=== PATIENT | female | born 1935 | race Caucasian/White ===

== ENCOUNTER 2019-09-07 13:25 | Observation (INO) | payer MEDICARE, SELFPAY ==
[2019-09-07] VITALS (21 sets, daily range): BP systolic 122–181; BP diastolic 56–108; PULSE 63–98; RESP 3–20; TEMP 35.9–36.9; O2SAT 96–100
--- NOTE | ~2019-09-07 | XR_ITS ---
EXAMINATION: XR chest 1V portable EXAM DATE: 09/07/2019 14:38 INDICATION: Headache. TECHNIQUE: Portable AP frontal chest x-ray was obtained. Comparison is made to prior examination from 03/09/2009. FINDINGS: The lungs are clear. There are no pleural effusions. Cardiac silhouette is prominent but magnified on this AP technique. There is no pneumothorax suspected. There are bony degenerative ch anges. IMPRESSION: No acute cardiopulmonary findings. Reviewed, dictated and finalized at location A.
--- NOTE | ~2019-09-07 | US_ITS ---
EXAMINATION: US carotid duplex BI DATE: 09/08/2019 13:36 INDICATION: Transient ischemic attack. TECHNIQUE: Grayscale, color Doppler, and pulsed Doppler images of the cervical carotid arteries were obtained. The degree of vessel stenosis is placed in one of the following categories: normal, <50%, 5 0-69%, >=70% but less than near-occlusion, near-occlusion, or total occlusion. Note that percent sten osis relative to normal distal artery lumen diameter is indirectly measured from velocity measurement s as described by Frederick, et al. Radiology 2003; 229:340-346. COMPARISON: None. FINDINGS: RIGHT: The right common carotid artery (CCA) peak systolic velocity (PSV) is 140 cm/s. The right internal ca rotid artery (ICA) PSV is 113 cm/s. The right ICA end-diastolic velocity (EDV) is 24 cm/s. The right ICA/CCA PSV ratio is 0.8. Grayscale and color Doppler images yield an estimate of <50% diameter reduc tion from plaque in the ICA. There is antegrade flow in the right vertebral artery. LEFT: The left CCA PSV is 151 cm/s. The left ICA PSV is 162 cm/s. The left ICA EDV is 35 cm/s. The left ICA /CCA PSV ratio is 1.1. Grayscale and color Doppler images yield an estimate of <50% diameter reductio n from plaque in the ICA. There is antegrade flow in the left vertebral artery. IMPRESSION: 1. <50% stenosis in the right internal carotid artery. 2. <50% stenosis in the left internal carotid artery. Reviewed, dictated and finalized at location A.
--- NOTE | ~2019-09-07 | CT_ITS ---
EXAMINATION: CT brain wo con EXAM DATE: 09/07/2019 14:36 INDICATION: Posterior headache, tingling and scalp. TECHNIQUE: Spiral CT of the head was performed without contrast. Axial, coronal and sagittal images were reviewed. The dose-length product (DLP) for this examination was 605.33 mGy-cm. The exposure w as tailored according to patient size, and iterative reconstruction (ASIR) was used as additional dos e reduction technique. There is no prior study for comparison. FINDINGS: There is no acute intraparenchymal hemorrhage. No evidence of intraparenchymal brain mass lesion. No evidence of acute infarction. Please note that initial head CT has limited sensitivity f or small or acute infarctions. There is mild periventricular and subcortical hypodensity, nonspecific but probably related to small vessel ischemic disease. There is mild prominence of the sulci and v entricles related to cerebral atrophy. There is intracranial carotid arteriosclerosis. There are n o extra-axial collections. There is no mass effect or midline shift. Patient has had bilateral ocul ar lens surgery. Soft tissue is unremarkable. The visualized sinuses and mastoid air cells are well aerated. IMPRESSION: 1. No acute intracranial findings. 2. Chronic age related findings. Reviewed, dictated and finalized at location A.
--- NOTE | 2019-09-07 13:43 | PC.NURSE ---
Pt states she was watching family drive by for Mother's Day and went inside. Pt states a couple time today she had episodes of tingling in her head. Pt states after the parade when she got inside she had some memory loss. Pt states she now has no symptoms. Pt is A&Ox4. Pt states she has no balance or gait issues. Pt family at bedside.
--- NOTE | 2019-09-07 14:22 | ECG_ITS ---
Measurements Intervals [place] Rate: 66 P: 52 AK: 169 QRS: -1 QRSD: 90 T: 43 QT: 399 QTc: 421 Interpretive Statements SINUS RHYTHM NORMAL ECG Electronically Signed On 09-07-2019 17:47:57 CDT by Noel Davidson D.O.
[2019-09-07 14:48] LABS: Glucose Point of Care 89 (65-105)
[2019-09-07 15:09] LABS: Basophils Absolute Auto 0.1 K/mm3 (0.0-0.1); Basophils Percent Auto 0.5 % (0.2-1.2); Eosinophils Absolute Auto 0.3 K/mm3 (0-0.3); Eosinophils Percent Auto 2.5 % (0-4.4); Hematocrit 39.4 % (37.0-47.0); Hemoglobin 13.2 g/dL (12.0-15.0); Immature Granulocyte Absolute 0.02 K/mm3 (0.00-0.031); Immature Granulocyte Percent A 0.2 % (0-0.5); Lymphocytes Percent Auto 17.9 % (18.3-44.2); Mean Corpuscular HGB Conc 33.5 g/dl (32-36); Mean Corpuscular Hemoglobin 30.6 pg (26-34); Mean Corpuscular Volume 91.2 fl (80-100); Mean Platelet Volume 9.8 fl (7.4-10.4); Monocytes Absolute Auto 0.7 K/mm3 (0.1-0.6); Monocytes Percent Auto 7.1 % (2.6-8.5); Neutrophils Absolute Auto 7.2 K/mm3 (1.3-6.7); Neutrophils Percent Auto 71.8 % (45.5-73.1); Platelet Count Result 251 k/mm3 (150-375); Red Blood Count 4.32 M/mm3 (4.2-5.4); Red Cell Distribution Width 12.1 % (11.5-14.5); White Blood Count 10.1 K/mm3 (4.5-10.0)
[2019-09-07 15:21] LABS: Blood Urea Nitrogen 16 mg/dL (7-17); Calcium 9.4 mg/dL (8.4-10.2); Carbon Dioxide 27 mmol/L (22-30); Chloride 100 mmol/L (98-107); Estimated CRCL calculation 48 ml/min; Estimated Glomerular Filt Rate > 60; Glucose 92 mg/dL (65-105); Sodium 134 mmol/L (137-145)
[2019-09-07 15:23] LABS: Prothrombin Time 12.8 Seconds (11.1-14.7)
--- NOTE | 2019-09-07 15:24 | ED.GENADULT ---
HPI - General Adult General Chief complaint: Unspecified Stated complaint: MILLIGAN Time Seen by Provider: 09/07/19 13:32 History of Present Illness HPI narrative: Patient is an 83-year-old female who presents the ER with strokelike symptoms. Patient was at her home and her family was performing a drive-by parade for Mother's Day. She then began to fill tingling in her head and went inside. She reports that when she got inside she had briefly forgotten about the parade and that it was Mother's Day. Patient reports she has been under a lot of stress as she has 2 sisters who are in their 90s who are currently hospitalized for pneumonia. She reports it is been an emotional morning and that she had not eaten today. No focal weakness in arm or leg. No dysarthria. I asked her symptoms lasted 1 to 2 minutes. Mild basilar MILLIGAN near the neck. Related Data Allergies Allergy/AdvReac Type Severity Reaction Status Date / Time Penicillins Allergy Severe RASH Verified 09/07/19 13:28 Review of Systems Review of Systems: All systems reviewed & are unremarkable except as noted in HPI and below Constitutional: Constitutional: Denies fatigue, Denies fever(s) and Denies weakness Eyes: Eyes: Denies change in vision and Denies photophobia Cardiovascular: Cardiovascular: Denies chest pain and Denies radiating jaw, neck or arm pain Respiratory: Respiratory: Denies cough and Denies dyspnea Gastrointestinal: Gastrointestinal: Denies abdominal pain, Denies nausea and Denies vomiting Neurologic: Reports confusion, Reports dizziness, Reports headache(s), Denies focal weakness, Reports numbness and Denies weakness PMFSH Past Medical History Medical History (Updated 09/07/19 @ 17:19 by Bennie Varghese MD) Essential (primary) hypertension Hypothyroidism (acquired) Mixed hyperlipidemia Surgical History Surgical History (Updated 09/07/19 @ 15:38 by Bennie Varghese MD) No pertinent past surgical history Social History Social History Smoking status: Current every day smoker Alcohol intake: current Gender identity (if verbalized by the patient): Female Exam Narrative: Exam Narrative: GENERAL: Well-appearing, well-nourished, and in no acute distress. HEAD: Normocephalic, atraumatic. EYES: PERRL and EOMI. ENT: Mucous membranes moist. CHEST: Clear to auscultation. No respiratory distress. HEART: Regular rate and rhythm. Normal peripheral pulses. ABDOMEN: Soft, nontender, nondistended. EXTREMITIES: Normal range of motion. No edema. SKIN: Warm, dry, no rash. NEURO: Alert and oriented x3. Course Vital Signs Vital signs: Vital Signs Temperature 98.4 F 09/07/19 13:29 Pulse Rate 69 09/07/19 13:29 Respiratory Rate 18 09/07/19 13:29 Blood Pressure 181/72 H 09/07/19 13:29 Pulse Oximetry 100 09/07/19 13:29 Temperature 98.4 F 09/07/19 13:29 Pulse Rate 71 09/07/19 17:02 Respiratory Rate 10 L 09/07/19 17:02 Blood Pressure 158/63 H 09/07/19 17:01 Pulse Oximetry 98 09/07/19 17:02 Medical Decision Making Vital Signs Vital Signs: Vital Signs Temperature 98.4 F 09/07/19 13:29 Pulse Rate 69 09/07/19 13:29 Respiratory Rate 18 09/07/19 13:29 Blood Pressure 181/72 H 09/07/19 13:29 Pulse Oximetry 100 09/07/19 13:29 Temperature 98.4 F 09/07/19 13:29 Pulse Rate 71 09/07/19 17:02 Respiratory Rate 10 L 09/07/19 17:02 Blood Pressure 158/63 H 09/07/19 17:01 Pulse Oximetry 98 09/07/19 17:02 Lab Data Result diagrams: 09/07/19 15:03 09/07/19 15:03 Labs: Lab Results 09/07/19 09/07/19 09/07/19 Range/Units 14:46 15:03 15:03 WBC 10.1 H (4.5-10.0) K/mm3 RBC 4.32 (4.2-5.4) M/mm3 Hgb 13.2 (12.0-15.0) g/dL Hct 39.4 (37.0-47.0) % MCV 91.2 (80-100) fl MCH 30.6 (26-34) pg MCHC 33.5 (32-36) g/dl RDW 12.1 (11.5-14.5) % Plt Count 251 (150-375) k/
[2019-09-07] MEDS: ASPIRIN 81 MG CHEWABLE TABLET 324 MG PO (15:44)
--- NOTE | 2019-09-07 17:56 | ADMGEN ---
This patient, Angelique Snow, was admitted to IMU Room 232-01 at 1752 on 09/07/2019. Patient/family oriented to hospital policies and general routines including ID bracelet, bed and alarms, visiting hours, pain management, procedures, bathroom and other care routines, personal items, smoking policy, room service/diet, and visiting hours. Valuables list has been completed. Information on how to activate the Rapid Response Team has been discussed. Patient/Family are encouraged to report perceived risks to care and to ask questions if they do not understand what they are told or what they should do.
[2019-09-07 18:46] LABS: Troponin I 0.446 ng/mL (0.000-0.034)
--- NOTE | 2019-09-07 19:38 | PM.IMHP ---
H&P: HPI History of Present Illness Chief complaint: TIA, Elevated Trop Narrative: Angelique Snow is a 83 year old female who has a history of hypertension, hyperlipidemia, and hypothyroidism. The patient stated that she has been under lot of stress lately. Both her sister sore in the 90s are both being treated for pneumonia. One is for bacterial in the other 1 is for aspiration pneumonia. Patient stated she has been very worried about them. The patient stated that there was a drive-by parade for mother's Day and she developed a pain in the back of her head and some tingling on the top of her head. She sat down to eat with her and she was staring off the space and for gotten about the brain for got that his mother's day she could not recall that information. One of her relatives in the neighborhood came to see urine suggested that she come to the emergency room. She had no focal weakness no pronator drifting. Patient was back to her baseline. Her head CT was read as no acute intracranial findings. Chronic age-related findings.Chest x-ray was read as no acute cardiopulmonary findings. The 1st troponin Was noted to be 0.260. The 2nd troponin is 0.446. Patient denies any chest pain. No nausea no vomiting no diarrhea. No fever no chills. No cough. No previous history of any TIAs or CVAs. No previous history of any heart disease. She does not have a conduit installer or neurologist. Patient is being admitted for possible TIA and rule out acute coronary syndrome. Date of service 09/07/2019. Review of Systems Review of Systems: All systems reviewed & are unremarkable except as noted in HPI and below Constitutional: Constitutional: Reports as per HPI and Reports no additional constitutional complaints Eyes: Eyes: Reports as per HPI and Reports no additional eye complaints ENT: Reports system reviewed and no additional complaints, except as documented and Reports Normal hearing present Cardiovascular: Cardiovascular: Reports no additional cardiovascular complaints Respiratory: Respiratory: Reports no additional respiratory complaints and Reports no additional respiratory complaints Gastrointestinal: Gastrointestinal: Reports as per HPI and Reports no additional gastrointestinal complaints Musculoskeletal: Musculoskeletal: Reports no additional musculoskeletal complaints Integumentary/Breasts: Skin/Breast: Reports system reviewed and no additional complaints, except as docu and Reports as per HPI Neurologic: Reports system reviewed and no additional complaints, except as documented, Reports as per HPI and Reports Normal hearing present Psychiatric: Psychiatric: Reports no additional psychiatric complaints and Reports as per HPI Endocrine: Endocrine: Reports no additional endocrine complaints Hematologic/Lymphatic: Hematologic/Lymphatic: Reports no additional hematologic/lymphatic complaints Allergic/Immunologic: Allergic/Immunologic: Reports no additional allergic/immunologic complaints [facility] Past Medical History Medical History (Updated 09/07/19 @ 19:44 by Priscilla Barriga NP) Essential (primary) hypertension Fibrocystic breast Hypothyroidism (acquired) Mixed hyperlipidemia Surgical History Surgical History (Updated 09/07/19 @ 19:44 by Priscilla Barriga NP) S/P lumpectomy, left breast Family History Family History Father Cerebrovascular accident, Onset Age: 76 Mother Cerebrovascular accident Sibling Family history of malignant neoplasm of breast, Onset Age: 90 Other Family history of malignant neoplasm Hypertension Social History Social History (Updated 09/07/19 @ 19:46 by Priscilla Barriga NP) Social History: The patient lives with her and she desires to be a full code. She desires to have her is a durable power deputy county attorney. The patient has had 4 children. She is retired from retail. Nonsmoker nondrinker n
[2019-09-07 21:35] LABS: Troponin I 0.328 ng/mL (0.000-0.034)
[2019-09-07] MEDS: ACETAMINOPHEN 325 MG TABLET 650 MG PO (23:21)
[2019-09-08] VITALS (7 sets, daily range): BP systolic 119–156; BP diastolic 54–80; PULSE 60–79; RESP 18–20; TEMP 36.1–36.4; O2SAT 95–100
[2019-09-08 05:00] LABS: Basophils Percent Auto 0.6 % (0.2-1.2); Eosinophils Absolute Auto 0.4 K/mm3 (0-0.3); Eosinophils Percent Auto 5.2 % (0-4.4); Hemoglobin 12.5 g/dL (12.0-15.0); Immature Granulocyte Absolute 0.03 K/mm3 (0.00-0.031); Immature Granulocyte Percent A 0.4 % (0-0.5); Lymphocytes Absolute Auto 2.12 K/mm3 (0.9-3.2); Lymphocytes Percent Auto 30.9 % (18.3-44.2); Mean Corpuscular HGB Conc 33.8 g/dl (32-36); Mean Corpuscular Hemoglobin 30.6 pg (26-34); Mean Corpuscular Volume 90.7 fl (80-100); Mean Platelet Volume 9.8 fl (7.4-10.4); Monocytes Absolute Auto 0.6 K/mm3 (0.1-0.6); Monocytes Percent Auto 9.2 % (2.6-8.5); Neutrophils Absolute Auto 3.7 K/mm3 (1.3-6.7); Neutrophils Percent Auto 53.7 % (45.5-73.1); Platelet Count Result 254 k/mm3 (150-375); Red Blood Count 4.08 M/mm3 (4.2-5.4); White Blood Count 6.9 K/mm3 (4.5-10.0)
[2019-09-08 05:12] LABS: Alanine Aminotransferase 14 U/L (4-35); Alkaline Phosphatase 53 U/L (38-126); Aspartate Amino Transferase 24 U/L (14-36); Bilirubin,Total 0.4 mg/dL (0.2-1.3); Blood Urea Nitrogen 15 mg/dL (7-17); Calcium 9.2 mg/dL (8.4-10.2); Carbon Dioxide 29 mmol/L (22-30); Chloride 101 mmol/L (98-107); Estimated CRCL calculation 48 ml/min; Estimated Glomerular Filt Rate > 60; Glucose 97 mg/dL (65-105); Magnesium 1.8 mg/dL (1.6-2.3); Sodium 134 mmol/L (137-145)
[2019-09-08 05:25] LABS: Troponin I 0.161 ng/mL (0.000-0.034)
--- NOTE | 2019-09-08 06:00 | ECHO_ITS ---
Patient Info Name: Angelique Snow Age: 83 years : 1935 Gender: Female Ht: 64 in Wt: 165 lbs BSA: 1.86 m2 HR: 72 bpm BP: 126 / 54 mmHg Heart Rhythm: Sinus Rhythm Technical Quality: Fair Exam Date: 09/08/2019 11:38 AM Exam Location: [facility] Patient Status: Inpatient Admit Date: 09/07/2019 Staff Ordering Physician: Bennie Varghese MD Tank Builder Helper: Alfred Benavidez RDCS Attending Provider: Demetria Dailey MD Referring Physician: Abimael PAINTING; Exam Type: CA echo dop color flow w con Study Info Indications 435.9 - TIA Complete two-dimensional, color flow and Doppler transthoracic echocardiogram is performed with contrast to opacify the left ventrical and to improve the deliniation of the left ventrical endocarial boarders. Contrast/Agitated Saline Contrast/Ag. Saline: Definity Amount: 2.00 ml Administered By: Fadia Perez RN Existing IV Access: Yes History/Risk Factors TIA; HTN and elevated trops. Summary 1. The left ventricular diastolic function is grade I diastolic dysfunction. 2. There is mild concentric increased left ventricular wall thickness. 3. Definity contrast was injected to improve visualization. 4. Right ventricular chamber dimension is normal. 5. Cardiac valves were poorly visualized but no significant Doppler abnormalities. 6. Left ventricular systolic function is normal, estimated at 60-65%. Left Ventricle Left ventricular chamber dimension is normal. Left ventricular systolic function is normal, estimated at 60-65%. There is mild concentric increased left ventricular wall thickness. The left ventricular diastolic function is grade I diastolic dysfunction. Definity contrast was injected to improve visualization. Right Ventricle Right ventricular chamber dimension is normal. Left Atria Left atrial chamber dimension is normal. Right Atria Right atrial chamber dimension is normal. Aortic Valve The aortic valve is not well visualized. There is no aortic valve stenosis. Pulmonic Valve The pulmonic valve is not well visualized. Mitral Valve The mitral valve has normal leaflets. Tricuspid Valve The tricuspid valve leaflets are not well visualized. Pericardium/Pleural The pericardium appears normal. Aorta The aortic root size at the sinus of Valsalva is normal. Left Ventricular Outflow Tract Name Value Normal LVOT 2D LVOT Diameter 1.88 cm LVOT Doppler LVOT Peak Gradient 5 mmHg LVOT Mean Gradient 3 mmHg LVOT VTI 20.71 cm LVOT VTI/AV VTI Ratio 0.79 LVOT Stroke Volume 57.34 ml LVOT CO 4.25 l/min LVOT CI 2.29 L/min/m2 Mitral Valve Name Value Normal MV Doppler
[2019-09-08] MEDS: LEVOTHYROXINE SODIUM 88 MCG TABLET PO (06:27)
--- NOTE | 2019-09-08 09:19 | PM.IMPN ---
Progress Note: A&P Assessment and Plan (1) Brain TIA: Code(s): G45.9 - Transient cerebral ischemic attack, unspecified Status: Acute Assessment and Plan: Possible TIA given her symptoms. Neurology has been consulted and appreciate input. CT brain with no acute changes. Patient does not feel she could tolerate MRI brain although has been ordered by ER physician. Carotid dopplers and echocardiogram pending. Now asymptomatic. Await consultations and additional test results. Will continue to monitor in the meantime. (2) Elevated troponin: Code(s): R79.89 - Other specified abnormal findings of blood chemistry Status: Acute Assessment and Plan: Patient has had no chest pain throughout course of her other symptoms. Serial troponin levels did peak at 0.446 and now 0.161 this morning. Telemetry reviewed on 09/08/2019 with sinus rhythm. EKG on presentation with sinus rhythm and no acute changes. Cardiology consulted and appreciate input. (3) Essential (primary) hypertension: Code(s): I10 - Essential (primary) hypertension Status: Chronic Assessment and Plan: Blood pressure reviewed on 09/08/2019. Blood pressure was elevated on presentation but now in normal range. Will continue to monitor on lisinopril and hydrochlorothiazide. (4) Mixed hyperlipidemia: Code(s): E78.2 - Mixed hyperlipidemia Status: Chronic Assessment and Plan: Continue home simvastatin. (5) Hypothyroidism (acquired): Code(s): E03.9 - Hypothyroidism, unspecified Status: Chronic Assessment and Plan: TSH 2.190. Will continue home levothyroxine. (6) Breast cancer: Code(s): C50.919 - Malignant neoplasm of unspecified site of unspecified female breast Status: Acute Assessment and Plan: Continue home anastrozole. (7) DVT prophylaxis: Code(s): Z29.9 - Encounter for prophylactic measures, unspecified Status: Acute Assessment and Plan: SCDs. Time Spent With Patient Time with patient: 15 - 25 minutes Subjective Date/time seen: 09/08/19 09:19 Interval history: Date of Service: 09/08/2019. Admitted with possible TIA, elevated troponin level. Patient had episode of pressure in the back of her head followed by tingling on the top of her head while watching a Mother's Day Parade from her porch. She subsequently went inside and had short lapse of memory when she forgot about the parade but was then her normal self. Initial workup in the emergency room negative except for mild elevation of troponin. Patient reports she has had chest pain pressure. No shortness of breath. Currently does not have any tingling and on her head or elsewhere. No further memory issues. No weakness in arms or legs. No abdominal pain. No headache. Review of Systems Review of Systems: Narrative: Feeling better. Constitutional: Constitutional: Denies chills and Denies fever(s) ENT: Denies dysphagia Cardiovascular: Cardiovascular: Denies chest pain and Denies palpitations Respiratory: Respiratory: Denies cough and Denies dyspnea Gastrointestinal: Gastrointestinal: Denies abdominal pain, Denies nausea and Denies vomiting Genitourinary: Genitourinary: Reports no additional female genitourinary complaints Musculoskeletal: Musculoskeletal: Reports no additional musculoskeletal complaints Integumentary/Breasts: Skin/Breast: Denies rash Neurologic: Denies vertigo, Denies headache(s) and Denies numbness Psychiatric: Psychiatric: Denies anxiety, Denies confusion and Denies depression Exam Narrative: Exam Narrative: Awake and alert. Const: General: no acute distress HENMT: Mouth: Yes moist mucous membranes Neck: Neck: supple Carotids: no bruits Lymphatic: lymphadenopathy not noted Resp: Auscultation: clear to auscultation bilaterally, no rales and no wheezes Cardio: Rate: regular rate Rhythm: regular rhythm GI: Inspection: non-distended
[2019-09-08] MEDS: hydroCHLOROthiazide 12.5 MG CAPSULE PO (10:18)
[2019-09-08] MEDS: ASPIRIN 81 MG ENTERIC TABLET PO (10:20)
[2019-09-08] MEDS: lisinopriL 20 MG TABLET PO (10:21)
[2019-09-08] MEDS: ANASTROZOLE (*CHEMO) 1 MG TABLET PO (10:21)
--- NOTE | 2019-09-08 10:58 | PM.CNCAR ---
Assessment and Plan Additional Plan 83-year-old female with ; Flat troponin elevation and no clinical evidence or electrocardiographic evidence of an acute coronary syndrome. Symptoms could certainly represent a episode of transient cerebral ischemia alternatively and probably even more likely just a lot of stress related to her self Maddie finding with Coronavirus as well as worrying about significant illness with this in 2 of her sisters. At this point I do not see any clinical necessity to initiate an ischemia workup. An echocardiogram has already been requested by the primary service as well as Neurology consultation which I suppose is appropriate given her symptoms. Alan North MD [facility] History of Present Illness History of Present Illness Consult date/time: Date of service: 09/08/19 10:58 Reason For Visit: TIA, Elevated Trop Narrative: This is a very pleasant 83-year-old lady am seeing at the request of the hospitalist because of elevation in her troponin level. She indicates she is not known to have any coronary disease and from what I can tell from the chart and speaking to her she is not reporting any symptoms that remotely sound suspicious to me for an acute coronary syndrome. She states that she in her usual state of good health can perform normal daily activities she even exercises regularly several times per week and does not notice any chest pain or undue dyspnea or other symptomatology associated with exertion. The patient has been under a lot of stress lately because of the Coronavirus pandemic. She states 2 of her sisters are ill with this and she is very concerned about their condition in addition to that she has been she altering her home. Yesterday to try to him lift her spirits her family conducted a mother's Day parade in front of her house with their extended family and grandchildren and she was very excited and happy to see this from her garage. When it was over with she went in the house and then she started to feel unwell she states she felt a tingling sensation in the top of her head and could not remember what had just happened she could not remember the mother's Day parade that her family put on in fact she could not even remember that was mother's Day. For this reason she was brought by ambulance to the emergency room evaluated and admitted to the hospital. For reasons that are not at all understandable to me her evaluation included troponin levels. Her 12 lead electrocardiogram which was done in the ED was totally normal. The troponin levels are slightly elevated and are flat. Patient states that her past medical history includes hypertension as well as I dyslipidemia. Her PCP has been treating these for many years with good success Review of Systems Constitutional: Constitutional: Reports no additional constitutional complaints Eyes: Eyes: Reports no additional eye complaints ENT: Reports system reviewed and no additional complaints, except as documented Cardiovascular: Cardiovascular: Reports no additional cardiovascular complaints Respiratory: Respiratory: Reports no additional respiratory complaints Gastrointestinal: Gastrointestinal: Reports no additional gastrointestinal complaints Musculoskeletal: Musculoskeletal: Reports no additional musculoskeletal complaints Integumentary/Breasts: Skin/Breast: Reports system reviewed and no additional complaints, except as docu Neurologic: Reports as per HPI Psychiatric: Psychiatric: Reports no additional psychiatric complaints Endocrine: Endocrine: Reports no additional endocrine complaints Hematologic/Lymphatic: Hematologic/Lymphatic: Reports no additional hematologic/lymphatic complaints Allergic/Immunologic: Allergic/Immunologic: Reports no additional allergic/immunologic complaints PMFSH Past Medical History Medical History (Updated 09/08/19 @ 09:27 by Stephanie Blancas MD) Essential (primary) hypertension Fibrocystic breast Hypothyr
[2019-09-08] MEDS: PERFLUTREN LIPID MICROSPHERES 1.5 ML VIAL DILUTED TO 10 ML TOTAL VOLUME IV PUSH (12:31)
--- NOTE | 2019-09-08 19:18 | PM.DS ---
DS: Diagnosis Admitting Diagnosis Admitting Diagnosis: Transient cerebral ischemic attack, unspecified Discharge Diagnosis (1) Brain TIA: Code(s): G45.9 - Transient cerebral ischemic attack, unspecified Status: Acute (2) Elevated troponin: Code(s): R79.89 - Other specified abnormal findings of blood chemistry Status: Acute (3) Essential (primary) hypertension: Code(s): I10 - Essential (primary) hypertension Status: Chronic (4) Mixed hyperlipidemia: Code(s): E78.2 - Mixed hyperlipidemia Status: Chronic (5) Hypothyroidism (acquired): Code(s): E03.9 - Hypothyroidism, unspecified Status: Chronic (6) Breast cancer: Code(s): C50.919 - Malignant neoplasm of unspecified site of unspecified female breast Status: Acute DS: Summary Hospital Course Reason for hospitalization: Tingling on top of head with memory lapse. Hospital Course: Date of Service of Discharge: September 08, 2019. History of Present Illness: Patient is a pleasant 83-year-old woman with known hypertension, hyperlipidemia and hypothyroidism who presented to the emergency room with an episode of tingling on the top of her head as well as memory lapse. Patient has been under significant stress recently with 2 of her sisters ill with pneumonia. Patient reports she was on her porch watching a Mother's Day parade done for her by her family. When she went inside, she reported having episode pressures starting the back of her head followed by tingling on the top of her head. Momentarily should note not remember the Mother's Day parade. Patient denies having chest pain or shortness of breath. No recent fever or chills. No abdominal pain, nausea or vomiting. Patient came to the emergency room at the suggestion of 1 of her relatives. In the emergency room, no CT brain with no acute changes. Chest x-ray with no changes. Troponin levels were drawn and found to be elevated but no EKG changes. With her symptoms, it was felt safest to have the patient placed in observation for further evaluation and treatment. Course in Hospital: Patient was placed in the intermediate care unit where she remained for the duration of her stay. Serial troponin levels did increase but patient had no associated chest pain or other cardiac symptoms. No changes on EKG or telemetry. She was seen in consultation by cardiology with no further workup felt necessary aside from the echocardiogram already ordered for TIA workup. With regards to her tingling sensation and memory issues, these were completely resolved by the time of presentation to the emergency room with no further neurological symptoms throughout her stay. Patient declined MRI brain but did agree to echocardiogram with EF 60-65% and diastolic dysfunction grade 1 with no other significant abnormalities. Carotid Dopplers were done with less than 50% stenosis bilaterally. In addition to Cardiology, she was seen in consultation by Neurology with recommendation to continue baby aspirin but no other medications needed. Patient's blood pressure was stable throughout her stay on her home medication. Blood sugar also remained stable. She additionally continued home simvastatin as well as home levothyroxine with TSH normal. With patient improved and stable as well as no need for further evaluation in the hospital, she was able to discharge home on the afternoon of September 08, 2019. Status at Discharge Cognitive/behavioral status at discharge: Stable. Functional status at discharge: independent ambulation Overall status at discharge: patient is back to baseline Time Spent with Patient Time attestation: Total time spent providing and/or coordinating discharge services: 35 minutes. Time spent: Greater than 30 minutes Exam Narrative: Exam Narrative: Vital Signs Temp Pulse Resp BP Pulse Ox 98.4 F 69
--- NOTE | 2019-09-08 23:38 | CONS_ITS ---
DATE OF CONSULTATION: 09/07/[address] Dailey. HISTORY OF PRESENT ILLNESS: An 83 years old lady has been admitted to [facility] through the emergency room for the complaint of possible TIA with elevated troponin. In addition to ongoing history of : 1. Hypertension. 2. Hyperlipidemia. 3. Hypothyroidism. 4. History of the left breast lumpectomy. As per the information available, she had been under a lot of stress lately. Her both sisters are being treated for the pneumonia. She developed pain in the back of her head and tingling sensation on the top of the head. She sat down to eat with her . She was staring off in the space and had difficulties in recalling. She was not found to have any focal weakness. CT scan was negative for the bleed. Chest x-ray was negative. Troponin was only 0.260, second one 0.446, and she herself complained of no chest pain, no nausea, or vomiting. No cough, no fever. She was admitted to the hospital for possible TIA with the intention to rule out the coronary syndrome and as mentioned above she did have the history of hypertension and hyperlipidemia. She carries a full code status. She was taking simvastatin 40 mg daily, anastrozole 1 mg daily, levothyroxine 88 mcg daily, lisinopril with hydrochlorothiazide 1 tablet daily. ALLERGIES: SHE IS ALLERGIC TO PENICILLIN. PHYSICAL EXAMINATION: VITAL SIGNS: Evaluation revealed her to be afebrile with pulse of 69, respiration 18, blood pressure 181/72, though it has come down to 122/108 subsequently. GENERAL: Examination revealed her to be awake, alert, cooperative, in no obvious acute distress HEENT: Head normocephalic with no cranial bruit. Ear, nose, throat examination normal. NECK: Supple with no cervical bruit. No thyromegaly. No lymphadenopathy. HEART: Regular. LUNGS: Clear. ABDOMEN: Soft. NEUROLOGICAL: She is awake, alert, oriented x3. Pupils round, regular. [place] of vision full. Extraocular movements full. Face symmetrical. Tongue midline. Motor examination revealed no asymmetrical strength, no drift. Reflexes symmetrical. Plantars downgoing. No evidence of gross cerebellar deficit. PLAN: Rule out the possibility of the TIA. CT scan of the chest is negative. CT scan of the head is negative except the age-related finding. Doppler study of the carotid less than 50% stenosis bilaterally. Echocardiogram normal. Initial head CT as mentioned before was negative and so as the chest x-ray. At this stage, she is receiving all her medication in addition to aspirin 81 mg daily, which will be continued as such with the diagnosis of the TIA. JASMYN CARLOS M.D. WARRANTY MANAGER WARRANTY MANAGER D I MT: Edward
== END 2019-09-08 17:15 | disposition home or self-care (01) ==
LOC: ANHED 16:51 → ANHIMU 17:19
PROVIDERS: Nurse Practitioner; Admitting Provider Family Medicine; Emergency Provider Emergency Medicine; PCP Family Medicine; Visit Provider Hospitalist
DX: G45.9 Transient cerebral ischemic attack, unspecified (principal); R79.89 Other specified abnormal findings of blood chemistry; I10 Essential (primary) hypertension; E03.9 Hypothyroidism, unspecified; E78.2 Mixed hyperlipidemia; C50.919 Malignant neoplasm of unspecified site of unspecified female breast; Z79.899 Other long term (current) drug therapy; Z88.0 Allergy status to penicillin
CPT/HCPCS: 36415; 70450; 71045; 80048; 80053; 82948; 83735; 84443; 84484; 85025; 85610; 85730; 93005; 93880; 96374; 99285; A9270; C8929; G0378; Q9957

== ENCOUNTER 2020-05-13 10:55 | Outpatient (NON) | payer MEDICARE, SELFPAY ==
[2020-05-13 22:47] LABS: SARS-CoV-2 RNA PCR Negative
== END 2020-05-13 10:56 ==
LOC: ANHCOVIDDT 10:56
PROVIDERS: PCP Family Medicine; Visit Provider Physician Assistant
DX: Z20.822 Contact with and (suspected) exposure to COVID-19 (principal); R09.81 Nasal congestion
CPT/HCPCS: C9803; U0003; U0005

== ENCOUNTER 2022-03-22 14:24 | Outpatient (CLI) | payer MEDICARE, SELFPAY ==
--- NOTE | ~2022-03-22 | DEXA_ITS ---
Bone Density Report Name: RAEGAN CHARLTON Age: 86 Sex: Female Ethnicity: White Date of : 1935 Indication: postmenopausal; screening for osteoporosis; height loss; cancer; Referring Provider: EKTA BARRIOS Study: Bone densitometry was performed. Exam Date: March 22, 2022 Accession number: [id number] Bone Density: Region BMD T-score Z-score Classification AP Spine(L1, L2) 1.183 1.9 4.5 Normal Femoral Neck (Left) 0.836 -0.1 2.4 Normal Total Hip (Left) 1.134 1.6 3.9 Normal Femoral Neck (Right) 0.868 0.2 2.7 Normal Total Hip (Right) 1.106 1.3 3.7 Normal Total Hip Mean 1.120 1.5 3.8 Normal World Health Organization criteria for BMD impression classify patients as: Normal (T-score at or above -1.0), Osteopenia (T-score between -1.0 and -2.5), or Osteoporosis (T-score at or below -2.5). 10-year Fracture Risk: FRAX not reported because: All T-scores for Spine Total, Hip Total, Femoral Neck at or above -1.0 Clinical Information Provided by Patient: Has used the following medications: Vitamin D, Calcium Has the following medical conditions: Cancer Patient maximum height was 63.5 Menopause Age: 53 Drinks caffeinated beverages Onset of menses at age 15 Number of children 4 Impression: The patient has normal bone mass. Discussion: LOW RISK OF FRACTURE; BONE DENSITY IS WELL ABOVE THE MINIMUM DESIRABLE LEVEL AND ABOVE AVERAGE FOR AGE AND SEX AT ALL SKELETAL SITES TESTED. This person's bone density is above expected limits for age and sex. This is rarely clinically significant, but should be pursued if there are significant musculoskeletal complaints. The patient should follow a healthful lifestyle (good nutrition with adequate calcium and vitamin D, and appropriate weight-bearing exercise). Follow-Up: Consider repeating this study in 5 years or sooner if there is some new clinical indication. Reported by: CAMPOS on 03/22/2022 3:24:00 PM. Reviewed, dictated and finalized at location AEmy SEPULVEDA
== END 2022-03-22 14:25 | disposition home or self-care (01) ==
PROVIDERS: PCP Emergency Medicine; Visit Provider Physician Assistant
DX: Z78.0 Asymptomatic menopausal state (principal); Z79.899 Other long term (current) drug therapy
CPT/HCPCS: 77080

== ENCOUNTER 2023-10-17 13:51 | Outpatient (CLI) | payer MEDICARE, SELFPAY ==
[2023-10-17 20:01] LABS: Alanine Aminotransferase 13 U/L (6-35); Albumin Level 4.5 g/dL (3.5-5.1); Alkaline Phosphatase 56 U/L (38-126); Anion Gap 7 mmol/L (4-12); Aspartate Amino Transferase 37 U/L (14-36); Bilirubin,Total 0.5 mg/dL (0.2-1.3); Blood Urea Nitrogen 22 mg/dL (7-17); Calcium 9.5 mg/dL (8.4-10.2); Carbon Dioxide 27 mmol/L (22-30); Chloride 101 mmol/L (98-107); Cholesterol 188 mg/dL (0-200); Estimated Glomerular Filt Rate > 60; Glucose 89 mg/dL (65-110); HDL Direct 59 mg/dL; Potassium 4.5 mmol/L (3.4-5.0); Sodium 135 mmol/L (137-145); Triglycerides 190 mg/dL (<150)
[2023-10-17 20:12] LABS: LDL Cholesterol Direct 102 mg/dL
[2023-10-17 20:32] LABS: Thyroid Stimulating Hormone 0.219 uIU/mL (0.465-4.680); Total Triiodothyronine (T3) 0.93 NG/ML (0.97-1.69)
== END 2023-10-17 13:52 | disposition home or self-care (01) ==
PROVIDERS: PCP Emergency Medicine; Visit Provider Emergency Medicine
DX: E03.9 Hypothyroidism, unspecified (principal); I10 Essential (primary) hypertension; E78.2 Mixed hyperlipidemia
CPT/HCPCS: 36415; 80053; 80061; 84439; 84443; 84480

== ENCOUNTER 2023-10-17 14:15 | Outpatient (CLI) | payer MEDICARE, SELFPAY ==
--- NOTE | ~2023-10-17 | XR_ITS ---
XR knee LT min 4V Ordering provider: Jh Ryan MD History: . NO INJURY BILATERAL KNEE PAIN . Comparison: None. FINDINGS: BONES: No acute fracture or dislocation. JOINT SPACES: Narrowing of the medial compartment SOFT TISSUES: Normal. IMPRESSION: No acute osseous abnormality left knee. Severe osteoarthritic changes. Reviewed, dictated and finalized at location A.
--- NOTE | ~2023-10-17 | XR_ITS ---
XR knee RT min 4V Ordering provider: Jh Ryan MD History: . NO INJURY BILATERAL KNEE PAIN . Comparison: None. FINDINGS: BONES: No acute fracture or dislocation. JOINT SPACES: Severe narrowing of the medial compartment. SOFT TISSUES: Normal. IMPRESSION: No acute osseous abnormality right knee. Severe osteoarthritic changes. Reviewed, dictated and finalized at location A.
== END 2023-10-17 14:16 ==
PROVIDERS: PCP Emergency Medicine; Visit Provider Emergency Medicine
DX: M17.0 Bilateral primary osteoarthritis of knee (principal)
CPT/HCPCS: 73564

== ENCOUNTER 2024-05-02 09:03 | Outpatient (CLI) | payer MEDICARE, SELFPAY ==
[2024-05-02 14:34] LABS: Basophils Absolute Auto 0.1 K/mm3 (0.0-0.1); Eosinophils Absolute Auto 0.4 K/mm3 (0-0.3); Eosinophils Percent Auto 5.3 % (0-4.4); Hematocrit 38.7 % (37.0-47.0); Immature Granulocyte Absolute 0.02 K/mm3 (0.00-0.031); Immature Granulocyte Percent A 0.3 % (0-0.5); Lymphocytes Absolute Auto 2.28 K/mm3 (0.9-3.2); Lymphocytes Percent Auto 32.6 % (18.3-44.2); Mean Corpuscular HGB Conc 33.6 g/dl (32-36); Mean Corpuscular Hemoglobin 31.6 pg (26-34); Mean Corpuscular Volume 94.2 fl (80-100); Mean Platelet Volume 9.8 fl (7.4-10.4); Monocytes Absolute Auto 0.6 K/mm3 (0.1-0.6); Monocytes Percent Auto 8.9 % (2.6-8.5); Neutrophils Absolute Auto 3.6 K/mm3 (1.3-6.7); Neutrophils Percent Auto 51.9 % (45.5-73.1); Platelet Count Result 297 k/mm3 (150-375); Red Blood Count 4.11 M/mm3 (4.2-5.4); Red Cell Distribution Width 12.2 % (11.5-14.5)
[2024-05-02 14:55] LABS: Free T4 Free Thyroxine 1.53 ng/dL (0.78-2.19)
[2024-05-02 16:15] LABS: Alanine Aminotransferase 15 U/L (6-35); Albumin Level 4.4 g/dL (3.5-5.1); Alkaline Phosphatase 54 U/L (38-126); Anion Gap 2 mmol/L (4-12); Aspartate Amino Transferase 34 U/L (14-36); Bilirubin,Total 0.6 mg/dL (0.2-1.3); Blood Urea Nitrogen 21 mg/dL (7-17); Calcium 9.4 mg/dL (8.4-10.2); Carbon Dioxide 32 mmol/L (22-30); Chloride 99 mmol/L (98-107); Cholesterol 188 mg/dL (0-200); Estimated Glomerular Filt Rate 53; Glucose 82 mg/dL (65-110); HDL Direct 58 mg/dL; Potassium 4.4 mmol/L (3.4-5.0); Sodium 133 mmol/L (137-145); Triglycerides 163 mg/dL (<150)
[2024-05-02 16:26] LABS: LDL Cholesterol Direct 88 mg/dL
[2024-05-03 11:43] LABS: T3 Free 3.2 pg/mL (2.3-4.2)
== END 2024-05-02 09:04 | disposition home or self-care (01) ==
LOC: ANHGOSHLAB 09:04
PROVIDERS: PCP Clinical Nurse Specialist; Visit Provider Clinical Nurse Specialist
DX: I10 Essential (primary) hypertension (principal); E78.2 Mixed hyperlipidemia; E03.9 Hypothyroidism, unspecified; G45.9 Transient cerebral ischemic attack, unspecified; C50.919 Malignant neoplasm of unspecified site of unspecified female breast
CPT/HCPCS: 36415; 80053; 80061; 84439; 84443; 84480; 85025

== ENCOUNTER 2024-08-22 09:20 | Outpatient (CLI) | payer MEDICARE, SELFPAY ==
--- OUTSIDE RECORDS SUMMARY | 2024-08-22 09:32 | XMS_ITS | Clinical Summary ---
Author Organization [facility] Address [address] [place] [address] Care Team Providers Care Diesel Powerplant Mechanic Helper Name Role Phone Jh Ryan MD Primary Care Provider [phone] Allergies Active Allergy Reactions Criticality Noted Date Comments Penicillins Shortness of breath,Rash High 03/01/2017 Medications simvastatin (ZOCOR) 40 mg tablet TK 1 T PO QHS 3 8 Active levothyroxine (SYNTHROID, LEVOTHROID) 175 mcg tablet Active prednisoLONE acetate (PRED FORTE) 1 % ophthalmic suspension INT 1 GTT INTO SURGICAL EYE TID STARTING AFTER SURGERY 1 8 Active ofloxacin (OCUFLOX) 0.3 % ophthalmic solution INT 1 GTT INTO AFFECTED EYE TID UTD. BEGIN 2 DAYS PRIOR TO SURGERY 1 8 Active vitamin E acid succinate (VITAMIN E SUCCINATE) 100 unit tablet Active calcium carbonate-vitam in D3 (CALCIUM 500 + D) 1,250mg (500mg elemental) - 200 units per tablet Active lisinopril-hydr oCHLOROthiazide (PRINZIDE,ZESTO RETIC) 20-12.5 mg per tablet TK 2 TS PO QD 3 9 Active FLUoxetine 10 mg capsule TK 1 C PO D 0 Active Paxlovid, EUA, tablets,dose pack tablets in a dose pack (EUA) TAKE 1 NIRMATRELVIR TABLET AND 1 RITONAVIR TABLET TOGETHER BY MOUTH TWICE DAILY X 5 DAYS 2 Active ketorolac (ACULAR) 0.5 % ophthalmic solution 3 Active levothyroxine (SYNTHROID) 75 mcg tablet Take 1 tablet (75 mcg total) by mouth daily 2 Active anastrozole (ARIMIDEX) 1 mg tablet TAKE 1 TABLET(1 MG) BY MOUTH DAILY 90 tablet 3 4 Active Active Problems Problem Noted Date Diagnosed Date 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, estrogen receptor positive 09/25/2018 History of breast cancer 03/20/2018 Encounters Date Type Department Care Team Description 08/04/2024 3:02 PM CDT - 08/04/2024 11:59 PM CDT Hospital Encounter [facility] - Breast Imaging [facility] Floor [address] [place] [address] HX: breast cancer Discharge Disposition: Discharge to home or self care 08/04/2024 2:45 PM CDT Office Visit [facility] Surgery [address] [place] [address] 8 [place] [address] My Reilly NP Malignant neoplasm of central portion of left breast in female, estrogen receptor positive (HCC) (Primary Dx); History of breast cancer 05/27/2024 Telephone [facility] Surgery [address] [place] [address] Marissa Meza CMA from Last 3 Months Immunizations Immunization Administration Dates Next Due Influenza, Quadrivalent, Rec ombinant, Egg Free, Preservative Free, Intramuscular 02/10/2019,04/08/2018 Surgical History Surgery Date Site/Laterality Comments BREAST LUMPECTOMY Medical History Medical History Date Comments Breast cancer (HCC) Hypertension Thyroid disease Family History Medical History Relation Name Comments Breast cancer Sister bone mets Relation Name Status Comments Sister Social History Tobacco Use Types Packs/Day Years Used Date Smoking Tobacco: Never Smokeless Tobacco: Never Tobacco Cessation:Counseling Given: Not Answered Alcohol Use Standard Drinks/Week Comments Yes 0 (1 standard drink = 0.6 oz pur e alcohol) socially Comments No Sex and Gender Information Value Date Recorded Sex Assigned at Not on file Legal Sex Female 3:12 PM CDT Gender Identity Not on file Sexual Orientation Not on file Obstetrics History Last Filed Vital Signs Vital Sign Reading Time Taken Comments Blood Pressure - - Pulse - - Temperature - - Respiratory Rate - - Oxygen Saturation - - Inhaled Oxygen Concentration - - Weight 74.4 kg (164 lb) 08/04/2024 2:46 PM CDT Height 162.6 cm (5' 4.02 ) 08/04/2024 2:46 PM CD T Body Mass Index 28.13 08/04/2024 2:46 PM CDT Plan of Treatment Health Maintenance Due Date Last Done Comments Depression Screening 1935 Fall Risk Assessment 1935 DTaP/Tdap/Td Vaccine (1 - Tdap) 1948 Hepatitis B Screening 09/27/1955 Pneumococcal vaccine 65+ (1 of 2 - PCV) 1956 Zoster Vaccine (1 of 2) 1956 Well Visit 65+ 2002 Influenza Vaccine (Season Ended) 2024 02/11/20, 04/08/2018 Procedures Procedure Name Priority Date/Time Associated Diagnosis Comments DIAGNOSTIC MAMMOGRAM BILATERAL W BRUCE Schedule Routine, Read Routine (OP Routine) 08/04/2024 3:47 PM CDT HX: breast cancer from Last 3 Months Results * Diagnostic Mammogram Bilateral W Bruce (08/04/2024 3:47 PM CDT) Anatomical Region Laterality Modality Breast Bilateral Mammography 08/04/2024 4:07 PM CDT Impressions 08/04/2024 5:17 PM CDT 1. Unchanged appearance of the LEFT breast, including at the site of the biopsy-proven invasive ductal carcinoma. 2. No mammographic evidence of malignancy within the RIGHT breast. OVERALL FINAL ASSESSMENT: BI-RADS Category 6: Known Biopsy-Proven Malignancy. RECOMMENDATION: Continued clinical follow-up is recommended with further management per the ELDERLY trial. Dictated by: Bennie Hamilton MD PHD The radiology attending physician has personally reviewed this study, and had reviewed and/or edited this written report and agrees with it. Electronically signed by: Marie Johnson M.D. Narrative 08/04/2024 5:17 PM CDT EXAMINATION: BILATERAL DIGITAL DIAGNOSTIC MAMMOGRAM INCLUDING CAD AND BILATERAL DIGITAL BREAST TOMOSYNTHESIS HISTORY: 88-year-old with LEFT breast invasive ductal carcinoma currently on the ELDERLY trial. COMPARISON: Multiple mammograms, most recently 01/01/2024 and dating back to 03/20/2018. TECHNIQUE: Full field digital mammographic views of BOTH breasts were performed, including computer aided detection (CAD) and BILATERAL digital breast tomosynthesis (DBT). BREAST PARENCHYMAL COMPOSITION: There are scattered areas of fibroglandular density. MAMMOGRAM FINDINGS: Unchanged tissue marker within the inner central LEFT breast at mid depth representing the patient's biopsy-proven invasive ductal carcinoma. The appearance of the LEFT breast is unchanged. No new suspicious mass, calcifications, or architectural distortion within EITHER breast. Unchanged appearance of bilateral nipple retraction. Procedure Note Marie Johnson MD - 08/04/2024 EXAMINATION: BILATERAL DIGITAL DIAGNOSTIC MAMMOGRAM INCLUDING CAD AND BILATERAL DIGITAL BREAST TOMOSYNTHESIS HISTORY: 88-year-old with LEFT breast invasive ductal carcinoma currently on the ELDERLY trial. COMPARISON: Multiple mammograms, most recently 01/01/2024 and dating back to 03/20/2018. TECHNIQUE: Full field digital mammographic views of BOTH breasts were performed, including computer aided detection (CAD) and BILATERAL digital breast tomosynthesis (DBT). BREAST PARENCHYMAL COMPOSITION: There are scattered areas of fibroglandular density. MAMMOGRAM FINDINGS: Unchanged tissue marker within the inner central LEFT breast at mid depth representing the patient's biopsy-proven invasive ductal carcinoma. The appearance of the LEFT breast is unchanged. No new suspicious mass, calcifications, or architectural distortion within EITHER breast. Unchanged appearance of bilateral nipple retraction. IMPRESSION: 1. Unchanged appearance of the LEFT breast, including at the site of the biopsy-proven invasive ductal carcinoma. 2. No mammographic evidence of malignancy within the RIGHT breast. OVERALL FINAL ASSESSMENT: BI-RADS Category 6: Known Biopsy-Proven Malignancy. RECOMMENDATION: Continued clinical follow-up is recommended with further management per the ELDERLY trial. Dictated by: Bennie Hamilton MD PHD The radiology attending physician has personally reviewed this study, and had reviewed and/or edited this written report and agrees with it. Electronically signed by: Marie Johnson M.D. My Reilly NP IMG MAMMO PROCEDURES Final Result from Last 3 Months Insurance [place] [id number] [place] [id number] [place] [id number] Care Teams Diesel Powerplant Mechanic Helper Relationship Specialty Start Date End Date Jh Ryan MD [address] [facility] [place], [place] [id number] PCP - General Family Medicine 01/01/24
--- OUTSIDE RECORDS SUMMARY | 2024-08-22 09:32 | XMS_ITS | Referral Summary ---
Author Organization [facility] Address [address] [place] [address] Care Team Providers Care Twisting Department End Finder Name Role Phone Jh Ryan MD Primary Care Provider [phone] Encounters Date Type Department Care Team Description 08/04/2024 3:02 PM CDT - 08/04/2024 11:59 PM CDT Hospital Encounter [facility] - Breast Imaging [address] [place] [address] 8 [place] [address] HX: breast cancer Discharge Disposition: Discharge to home or self care 08/04/2024 2:45 PM CDT Office Visit [facility] Surgery [address] [place] [address] 8 [place] [address] My Reilly NP Malignant neoplasm of central portion of left breast in female, estrogen receptor positive (HCC) (Primary Dx); History of breast cancer 05/27/2024 Telephone [facility] Surgery [address] [place] [address] 8 [place] [address] Marissa Meza CMA from Last 3 Months Allergies Active Allergy Reactions Criticality Noted Date [...] positive 09/25/2018 History of breast cancer 03/20/2018 Immunizations Immunization Administration Dates Next Due Influenza, Quadrivalent, Rec ombinant, Egg Free, Preservative Free, Intramuscular 02/10/2019,04/08/2018 Social History Tobacco Use Types Packs/Day Years [...] on file Sexual Orientation Not on file Last Filed Vital Signs Vital Sign Reading [...] 08/04/2024 2:46 PM CDT Plan of Treatment Not on file Procedures Procedure Name Priority Date/Time Associated Diagnosis [...] it. Electronically signed by: Marie Johnson M.D. Result [facility] My Reilly NP IMG MAMMO PROCEDURES Final Result from Last 3 Months Insurance [facility] MEDICARE ADVANTAGE [facility] MDCR HMO REF [facility] MEDICARE ADVANTAGE Care Teams Twisting Department End Finder Relationship Specialty Start Date End Date Jh Ryan MD [address] [place] [address] [place] [address] PCP - General Family Medicine 01/01/24
--- OUTSIDE RECORDS SUMMARY | 2024-08-22 09:32 | XMS_ITS | Encounter Summary ---
Author Organization [facility] Address [address] [place] [address] Phone Care Team Providers Care Rn Coronary Care Unit Name Role Phone Matt Tomlin MD Primary Care Provider [phone] Jh Ryan MD Primary Care Provider [phone] Encounter Details Date Type Department Care Team (Late st Contact Info) Description 12/20/2020 Orders Only [facility] Surgery [address] [facility] Advanced Medicine 5th [place] [address] [place] [address] Yoanna Crawford, [facility] [address] [address] Social History Tobacco Use Types Packs/Day Years Used Date Smoking Tobacco: Never Smokeless Tobacco: Never Alcohol Use Standard Drinks/Week Comments Yes 0 (1 standard drink = 0.6 oz pur e alcohol) socially Comments No Sex and Gender Information Value Date Recorded Sex Assigned at Not on file Legal Sex Female 3:12 PM CDT Gender Identity Not on file Sexual Orientation Not on file documented as of this encounter Plan of Treatment Not on file documented as of this encounter Visit Diagnoses Not on filedocumented in this encounter Care Teams Rn Coronary Care Unit Relationship Specialty Start Date End Date Matt Tomlin MD [address] [place] [address] PCP - General Family Medicine 03/11/18 12/31/23 Jh Ryan MD [facility] [place] [address] PCP - General Family Medicine 01/01/24 documented as of this encounter
[2024-08-22 18:52] LABS: Anion Gap 10 mmol/L (4-12); Blood Urea Nitrogen 21 mg/dL (7-17); Calcium 9.2 mg/dL (8.4-10.2); Carbon Dioxide 28 mmol/L (22-30); Chloride 94 mmol/L (98-107); Estimated Glomerular Filt Rate > 60; Glucose 78 mg/dL (65-110); Potassium 4.7 mmol/L (3.4-5.0); Sodium 132 mmol/L (137-145)
== END 2024-08-22 09:21 | disposition home or self-care (01) ==
LOC: ANHGOSHLAB 09:22
PROVIDERS: PCP Clinical Nurse Specialist; Visit Provider Clinical Nurse Specialist
DX: E03.9 Hypothyroidism, unspecified (principal); I10 Essential (primary) hypertension
CPT/HCPCS: 36415; 80048; 84443

== ENCOUNTER 2024-10-29 09:37 | Outpatient (CLI) | payer MEDICARE, SELFPAY ==
--- OUTSIDE RECORDS SUMMARY | 2024-10-29 09:49 | XMS_ITS | Clinical Summary ---
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 - Breast Imaging [address] [place] [address] 8 [place] [address] HX: breast cancer Discharge Disposition: Discharge to home or self care 08/04/2024 2:45 PM CDT Office Visit [facility] Surgery [address] [place] [address] 8 [place] [address] yM Reilly NP Malignant neoplasm of central portion of left breast in female, estrogen receptor positive (HCC) (Primary Dx); History of breast cancer from Last 3 Months Immunizations Immunization Administration [...] 2:46 PM CDT Height 162.6 cm (5' 4.02) 08/04/2024 2:46 PM CD T Body Mass Index 28.13 08/04/2024 2:46 PM CDT Plan of Treatment Health Maintenance Due Date Last Done Comments Depression Screening 1935 Fall Risk Assessment 1935 Osteoporosis Screening-Bone Density Scan 1935 DTaP/Tdap/Td Vaccine (1 - Tdap) 1948 [...] Final Result from Last 3 Months Insurance [facility] Address: [address] [address] [place] [id number] [facility] Address: [address] [address] [place] [id number] [facility] Address: [address] [address] [place] [id number] Care Teams Wildlife Refuge Manager Relationship Specialty Start Date End Date Jh Ryan MD [address] [facility] [place] [address] PCP - General Family Medicine 01/01/24
--- OUTSIDE RECORDS SUMMARY | 2024-10-29 09:49 | XMS_ITS | Encounter Summary ---
Author Organization [facility] Address [address] [place] [address] Phone Care Team Providers Care Nurse School Name Role Phone Matt Tomlin MD Primary Care Provider [phone] Jh Ryan MD Primary Care Provider [phone] Encounter Details Date Type Department Care Team (Late st Contact Info) Description 12/20/2020 Orders Only [facility] Surgery [address] [facility] Advanced Medicine 5th [place] [address] [place] [address] Yoanna Crawford, [facility] [address] [address] Social History Tobacco Use Types Packs/Day Years [...] on filedocumented in this encounter Care Teams Nurse School Relationship Specialty Start Date End Date Matt Tomlin MD [address] [place] [address] PCP - General Family Medicine 03/11/18 12/31/23 Jh Ryan MD [facility] [facility] [place] [address] PCP - General Family Medicine 01/01/24 documented as of this encounter
--- OUTSIDE RECORDS SUMMARY | 2024-10-29 09:49 | XMS_ITS | Referral Summary ---
Author Organization [facility] Address [address] [place] [address] Care Team Providers Care Social Security Specialist Name Role Phone Jh Ryan MD Primary Care Provider [phone] Encounters Date Type Department Care Team Description 09/23/2024 Documentation [facility] [address] [place] [address] [address] [place] [address] Gely Rosado RN 08/04/2024 3:02 PM CDT - 08/04/2024 11:59 PM CDT Hospital Encounter [facility] [place] - Breast Imaging [address] [place] [address] 8 [place] [address] HX: breast cancer Discharge Disposition: Discharge to home or self care 08/04/2024 2:45 PM CDT Office Visit [facility] [address] [place] [address] 8 [place] [id number] My Reilly NP Malignant neoplasm of central portion of left breast in female, estrogen receptor positive (HCC) (Primary Dx); History of breast cancer from Last 3 Months Allergies Active Allergy [...] Electronically signed by: Marie Johnson M.D. Result [facility] My Reilly NP IMG MAMMO PROCEDURES Final Result from Last 3 Months Insurance [facility] MEDICARE ADVANTAGE [facility] MDCR HMO REF [facility] MEDICARE ADVANTAGE Care Teams Social Security Specialist Relationship Specialty Start Date End Date Jh Ryan MD [address] [place] [address] [place] [address] PCP - General Family Medicine 01/01/24
[2024-10-29 13:03] LABS: Anion Gap 9 mmol/L (4-12); Blood Urea Nitrogen 25 mg/dL (7-17); Calcium 9.7 mg/dL (8.4-10.2); Carbon Dioxide 27 mmol/L (22-30); Chloride 95 mmol/L (98-107); Estimated Glomerular Filt Rate 56; Glucose 96 mg/dL (65-110); Potassium 4.4 mmol/L (3.4-5.0); Sodium 131 mmol/L (137-145)
== END 2024-10-29 09:38 | disposition home or self-care (01) ==
LOC: ANHGOSHLAB 09:38
PROVIDERS: PCP Clinical Nurse Specialist; Visit Provider Clinical Nurse Specialist
DX: E87.1 Hypo-osmolality and hyponatremia (principal)
CPT/HCPCS: 36415; 80048

== ENCOUNTER 2025-03-09 13:36 | Outpatient (CLI) | payer MEDICARE, SELFPAY ==
--- OUTSIDE RECORDS SUMMARY | 2025-03-09 13:47 | XMS_ITS | Clinical Summary ---
Author Organization [facility] Address [address] [place] [address] Care Team Providers Care Crew Truck Driver Name Role Phone Jh Ryan MD Primary Care Provider [phone] Allergies Active Allergy Reactions Criticality Noted Date [...] 1954 Well Visit 65+ 2002 Influenza Vaccine (#1) 2024 02/10/2019, 2017 Insurance [place] [id number] [place] [id number] [place] [id number] Care Teams Crew Truck Driver Relationship Specialty Start Date End Date Jh Ryan MD [facility] [place] [address] PCP - General Family Medicine 01/01/24
--- OUTSIDE RECORDS SUMMARY | 2025-03-09 13:47 | XMS_ITS | Encounter Summary ---
Author Organization [facility] Address [address] [place] [address] Phone Care Team Providers Care Plastics Bench Mechanic Name Role Phone Matt Tomlin MD Primary Care Provider [phone] Jh Ryan MD Primary Care Provider [phone] Encounter Details Date Type Department Care Team (Late st Contact Info) Description 12/20/2020 Orders Only [facility] [address] [facility] Advanced Medicine 5th [place] [address] [place] [address] Yoanna [place], [facility] [address] [address] Social History Tobacco Use Types Packs/Day Years [...] on filedocumented in this encounter Care Teams Plastics Bench Mechanic Relationship Specialty Start Date End Date Matt Tomlin MD [address] [place] [address] PCP - General Family Medicine 03/11/18 12/31/23 Jh Ryan MD [facility] [facility] [place] [address] PCP - General Family Medicine 01/01/24 documented as of this encounter
[2025-03-09 19:04] LABS: Anion Gap 5 mmol/L (4-12); Blood Urea Nitrogen 20 mg/dL (7-17); Calcium 9.2 mg/dL (8.4-10.2); Carbon Dioxide 30 mmol/L (22-30); Chloride 98 mmol/L (98-107); Estimated Glomerular Filt Rate 48; Glucose 87 mg/dL (65-110); Potassium 4.5 mmol/L (3.4-5.0); Sodium 133 mmol/L (137-145)
== END 2025-03-09 13:37 | disposition home or self-care (01) ==
PROVIDERS: PCP Internal Medicine; Visit Provider Internal Medicine
DX: E87.1 Hypo-osmolality and hyponatremia (principal)
CPT/HCPCS: 36415; 80048

== ENCOUNTER 2025-03-20 14:49 | Outpatient (CLI) | payer MEDICARE, SELFPAY ==
--- OUTSIDE RECORDS SUMMARY | 2025-03-20 14:51 | XMS_ITS | Clinical Summary ---
Author Organization [facility] Address [address] [place] [address] Care Team Providers Care Ampoule Filler And Sealer Name Role Phone Jh Ryan MD Primary Care Provider [phone] Allergies Active Allergy Reactions Criticality Noted Date [...] Influenza Vaccine (#1) 2024 02/10/2019, 2017 Insurance [place] [id number] [place] [id number] [place] [phone] Care Teams Ampoule Filler And Sealer Relationship Specialty Start Date End Date Jh Ryan MD [facility] [facility] [place] [place] [address] PCP - General Family Medicine 01/01/24
[2025-03-20 18:19] LABS: Hematocrit 37.4 % (37.0-47.0); Hemoglobin 12.2 g/dL (12.0-15.0); Immature Granulocyte Percent A 0.4 % (0-0.5); Lymphocytes Absolute Auto 1.97 K/mm3 (0.9-3.2); Mean Corpuscular HGB Conc 32.6 g/dl (32-36); Mean Corpuscular Hemoglobin 30.9 pg (26-34); Mean Corpuscular Volume 94.7 fl (80-100); Nucleated Red Blood Cells Absolute Auto 0.000 K/mm3 (0.0-0.012); Nucleated Red Blood Cells Perc 0.0 % (0.0-0.2); Platelet Count Result 294 k/mm3 (150-375); Red Blood Count 3.95 M/mm3 (4.2-5.4); White Blood Count 7.4 K/mm3 (4.5-10.0)
[2025-03-20 19:04] LABS: Thyroid Stimulating Hormone 1.440 uIU/mL (0.465-4.680)
== END 2025-03-20 14:50 | disposition home or self-care (01) ==
LOC: ANHGOSHLAB 14:49
PROVIDERS: PCP Internal Medicine; Visit Provider Internal Medicine
DX: E03.9 Hypothyroidism, unspecified (principal); I10 Essential (primary) hypertension; Z79.899 Other long term (current) drug therapy
CPT/HCPCS: 36415; 84443; 85025

== ENCOUNTER 2025-04-02 13:22 | Outpatient (CLI) | payer MEDICARE, SELFPAY ==
--- NOTE | ~2025-04-02 | XR_ITS ---
EXAMINATION: XR chest 2V, 04/02/2025 13:47 FLOORING PROFESSIONAL HISTORY: Malignant neoplasm of unspecified site of left COMPARISON: No comparisons available. Technique: 2 views obtained. Findings: The lungs are clear, no effusion. No pneumothorax. Heart is normal size. Mediastinal and hilar contours are within normal limits. Bony thorax no acute abnormality. Impression: No acute cardiopulmonary abnormality. Reviewed, dictated and finalized at location P. RING PROFESSIONAL Impression: No acute cardiopulmonary abnormality.
== END 2025-04-02 13:23 | disposition home or self-care (01) ==
PROVIDERS: PCP Internal Medicine; Visit Provider Internal Medicine
DX: C50.912 Malignant neoplasm of unspecified site of left female breast (principal); E87.1 Hypo-osmolality and hyponatremia
CPT/HCPCS: 71046